=== PATIENT | female | born 1975 | race Hispanic/Latino ===

== ENCOUNTER 2019-10-25 12:40 | Outpatient (CLI) | payer OTHER ==
--- NOTE | 2019-10-25 13:59 | MMO ---
Bilateral MAMMO Bilat Diag [facility]. CLINICAL HISTORY: Patient is 44 years old and is seen for diagnostic exam,palpable abnormality and pain in both breasts. The patient has no family history of breast cancer. The patient has no personal history of cancer. VIEWS: The views performed were: bilateral craniocaudal; bilateral craniocaudal with tomosynthesis; bilateral mediolateral oblique with tomosynthesis; and bilateral mediolateral with tomosynthesis. FILMS COMPARED: The present examination has been compared to prior imaging studies performed at [facility] on 05/08/2014 and 10/25/2019. This study has been interpreted with the assistance of computer-aided detection. MAMMOGRAM FINDINGS: There are scattered fibroglandular densities. There are no suspicious masses, suspicious calcifications, or new areas of architectural distortion. There are no mammographic or sonographic abnormalities in the areasof palpable concern. The patient is referred back to her clinician. Negative imaging findings should not preclude biopsy if clinical findings are suspicious. IMPRESSION: THERE ARE NO MAMMOGRAPHIC OR SONOGRAPHIC ABNORMALITIES IN THE AREASOF PALPABLE CONCERN. THE PATIENT IS REFERRED BACK TO HER CLINICIAN. NEGATIVE IMAGING FINDINGS SHOULD NOT PRECLUDE BIOPSY IF CLINICAL FINDINGS ARE SUSPICIOUS. THE RESULTS OF THIS EXAM WERE SENT TO THE PATIENT. ACR BI-RADS Category 1 - Negative MAMMOGRAPHY NOTE: 1. A negative mammogram report should not delay a biopsy if a dominant of clinically suspicious mass is present. 2. Approximately 10% to 15% of breast cancers are not detected by mammography. 3. Adenosis and dense breasts may obscure an underlying neoplasm. Reported by: BUFFY HICKS MD Electonically Signed: [id number]
--- NOTE | 2019-10-25 14:02 | ULT ---
EXAM: US Breast Limited Rt PROVIDED CLINICAL HISTORY: Right breast palpable abnormality COMPARISON: None FINDINGS: Limited sonographic interrogation of the right breast was performed in the region of palpable concern . There is a 5 mm intramammary lymph node seen in the region of palpable concern. No concerning sonographic findings are evident. IMPRESSION: No concerning sonographic findings are evident in the region of palpable concern. Negative imaging fi ndings should not preclude further evaluation of a clinically suspicious area. The patient is referred back to her clinician. BI-RADS 2 -- benign findings
--- NOTE | 2019-10-25 14:02 | ULT ---
EXAM: US Breast Limited Lt PROVIDED CLINICAL HISTORY: Left breast palpable abnormality COMPARISON: None FINDINGS: Limited sonographic interrogation was performed of the left breast in the region of palpable concern. The sonographic appearance of the breast tissue in this region is normal. IMPRESSION: No sonographic abnormality is evident in the region of clinical concern. Negative imaging findings sh ould not preclude further evaluation of a clinically suspicious finding. Patient is referred back to her clinician.
== END 2019-10-25 12:41 | disposition home or self-care (01) ==
LOC: BICMAMMO 12:40
PROVIDERS: ATTEND Family Medicine
DX: N63.10 Unspecified lump in the right breast, unspecified quadrant (principal); N63.20 Unspecified lump in the left breast, unspecified quadrant; N64.4 Mastodynia
CPT/HCPCS: 77066; G0279

== ENCOUNTER 2019-11-16 06:53 | Observation (INO) | payer SELFPAY ==
[2019-11-16 07:42] LABS: #Eosinphils 0.1 thou/uL (0.0-0.7); #Lymphocytes 2.3 thou/uL (1.20-3.40); #Monocytes 0.4 thou/uL (0.11-0.59); #Neutrophils 3.4 thou/uL (1.40-6.50); %Basophils 0.2 % (0.0-1.0); %Eosinophils 1.3 % (0.0-10.0); %Lymphocytes 36.8 % (21.0-51.0); %Monocytes 6.2 % (0.0-10.0); %Neutrophils 55.5 % (42.0-75.0); Hemoglobin 14.4 g/dL (12.0-16.0); Mean Corpuscular HGB CONC 34.7 g/dL (32.0-36.0); Mean Corpuscular Hemoglobin 30.8 pg (27.0-31.0); Mean Platelet Volume 8.5 fL (7.4-10.4); Platelet Count 216 thou/uL (130-400); RBC Distribution Width 11.3 % (11.5-14.5); Red Blood Cell (RBC) Count 4.67 mill/uL (4.20-5.40); White Blood Cell (WBC) Count 6.2 thou/uL (4.8-10.8)
[2019-11-16 07:47] LABS: BHCG - Serum Negative (NEGATIVE); Pregs Control Background? CLEAR/WHITE (CLR/WHITE); Pregs Control Bar Appear? YES (CONTROL BAR)
--- NOTE | 2019-11-16 07:52 | RAD ---
Chest one view HISTORY: Chest pain. FINDINGS: Cardiac silhouette is magnified by projection. Pulmonary vasculature is unremarkable. Mediastinum is midline. No lobar consolidation or evidence of pneumothorax. athletic monitor leads overlie the chest. IMPRESSION : No abnormalities are demonstrated
[2019-11-16 08:01] LABS: ALT (SGPT) 23 U/L (8-55); AST (SGOT) 13 U/L (5-34); Albumin 3.9 g/dL (3.5-5.0); Alkaline Phosphatase 135 U/L (40-110); Anion Gap 13 mmol/L (10-20); BUN (Urea Nitrogen) 14 mg/dL (7.0-18.7); Bilirubin, Total 0.6 mg/dL (0.2-1.2); Calc. Creatinine Clearance 0 mL/min (70-130); Calcium 8.9 mg/dL (7.8-10.44); Carbon Dioxide 24 mmol/L (22-29); Chloride 102 mmol/L (98-107); Estimated GFR-MDRD Greater than 90; Globulin 2.8 g/dL (2.4-3.5); Glucose 351 mg/dL (70-105); Lipase 10 U/L (8-78); Potassium 3.7 mmol/L (3.5-5.1); Protein, Total 6.7 g/dL (6.0-8.3); Sodium 135 mmol/L (136-145)
[2019-11-16 08:22] LABS: CKMB 0.6 ng/mL (0-6.6)
[2019-11-16] MEDS ORDERED: Nitroglycerin 0.4 MG TAB 1 EACH ONE (09:00)
[2019-11-16] MEDS ORDERED: Ketorolac Tromethamine 30 MG/ML VIAL ONE (09:07)
[2019-11-16 10:52] LABS: Troponin I Less than 0.010 ng/mL (< 0.028)
[2019-11-16] MEDS ORDERED: Nitroglycerin 0.4 MG TAB (25 Tab Bottle) PO PRN (11:34)
[2019-11-16] MEDS ORDERED: Dextrose 5% in Water 1,000 ML IV PRN (11:34)
[2019-11-16] MEDS ORDERED: Dextrose 50% Abboject 50 ML SYRINGE SLOW IVP PRN (11:34)
[2019-11-16] MEDS ORDERED: Insulin Glargine 10 UNITS in Pre-Filled Syringe 1 EACH SC SCH (11:34)
[2019-11-16] MEDS ORDERED: HumaLOG 300 UNITS/3 ML VIAL SC PRN ×2 (11:34)
[2019-11-16] MEDS ORDERED: Mag-Al 1200 mg/1200 mg/30 ML UDCUP PO PRN (11:56)
[2019-11-16] MEDS ORDERED: Pantoprazole 40 MG VIAL IVP SCH (12:00)
[2019-11-16 12:32] VITALS: BMI 48.9
--- NOTE | 2019-11-16 15:49 | NM ---
EXAM: Cardiac SPECT HISTORY: Chest pain PROTOCOL: Stress only, single isotope TYPE OF STRESS: Pharmacologic stress with adenosine was monitored and interpreted by Jb Sage RADIOPHARMACEUTICAL: 32 mCi technetium 99m-sestamibi injected intravenously FINDINGS: Homogeneous tracer distribution is seen in the myocardial segments on the post stress images. Gated SPECT LVEF: 57% Wall motion exam: Normal IMPRESSION: Normal post stress myocardial perfusion scan.
[2019-11-16 15:53] VITALS: BP 150/68; TEMP 98.4
--- NOTE | 2019-11-16 18:03 | HP ---
PRIMARY CARE PHYSICIAN: Mecca Cortez. CHIEF COMPLAINT: Right-sided chest pain, that radiates to the back. HISTORY OF PRESENT ILLNESS: The patient is a pleasant 44-year-old female with past medical history significant for diabetes mellitus type 2 and stomach ulcers. She presents to the ER after right-sided chest pain started last night at about 2330 hours. She was sitting at home watching TV when it started on her right side and radiated to her back. She states that it felt like a shock of pain and she could not move. She was finally able to call out for her and he helped her to bed. She took two 325 mg aspirin which helped a slightly with the pain. Throughout the night, the pain continued. She denies nausea, diaphoresis , dizziness, shortness of breath. She states that the pain is in her upper epigastric area, into to her midsternum and it radiates then to the back. When she arrived to the ER today, they gave her nitroglycerin, which she said helped some also, but caused a headache. They then gave her Toradol, which helped her headache. She still has mild pain to the right side. It is exacerbated with palpation. She does state that movement can make it worse. Denies pleurisy. Of note, the patient also claims that for the past 2 weeks when she has been eating, she is having burning pain in her stomach. She has a history of stomach ulcers that were discovered after doing an EGD a couple of years ago. She says she was supposed to follow up with GI, but did not have insurance or money to do that. She has been off her insulin for a few days and she is waiting on a refill from the pharmacy. Blood sugars today are ranging in the high 300s. Today, in the ER, they completed labs, x-ray, EKG, and administered 30 mg of Toradol and 1 nitroglycerin sublingual 0.4 mg. PAST MEDICAL HISTORY: 1. Diabetes mellitus type 2. 2. Migraines. 3. Stomach ulcers. 4. Endometriosis. PAST SURGICAL HISTORY: 1. Uterine ablation. 2. Uterus removal. 3. Cholecystectomy. 4. Hysterectomy. ALLERGIES: NO KNOWN DRUG ALLERGIES. MEDICATIONS: As reconciled from the ER; 1. Metformin 500 mg two times a day. 2. Levemir 60 units twice a day. 3. Fluoxetine 20 mg once a day. 4. Lisinopril 5 mg once a day. SOCIAL HISTORY: The patient is currently unemployed. She lives at home with her and son. She denies any smoking, alcohol, or drug history. FAMILY HISTORY: Dad in his 60s from heart disease, had history of diabetes and kidney failure also. Mother has hypertension. REVIEW OF SYSTEMS: All other review of systems are negative unless noted in the history of present illness. PHYSICAL EXAMINATION: VITAL SIGNS: Blood pressure 130/67, pulse 76, respiratory rate 19, temperature 98.3 orally, O2 saturation 97% on room air. HEENT: Head; atraumatic, normocephalic. PERRLA. Extraocular muscles intact. NECK: Normal range of motion. Trachea midline. RESPIRATORY: Breath sounds are clear to auscultation bilaterally. No wheezing. No rhonchi. No rales. CARDIOVASCULAR: Regular rate and rhythm. No murmurs. No rubs. No gallops. ABDOMEN: Tender to the epigastric area. No guarding. No masses. EXTREMITIES: No cyanosis. Pedal pulses intact. Right foot with very slight edema to it. NEUROLOGIC: Awake and alert. PSYCH: Normal affect. Normal behavior. LABORATORY STUDIES: EKG showed sinus rhythm, rate of 75. Chest x-ray; pulmonary vasculature is unremarkable. No evidence of pneumothorax, no abnormalities are demonstrated. White blood cell 6.2, hemoglobin 14.4, hematocrit 41.5. Sodium 135, potassium 3.7, BUN 14, creatinine 0.69, GFR greater than 90, glucose 351, alkaline phosphatase 135. Initial troponin 0.060, 2nd less than 0.010. Negative test. IMPRESSION AND PLAN: 1. Chest pain. Plan to do a cardiac stress test this afternoon and to continue to watch the troponins. She will be monitored on telemetry. During this time, as needed nitroglycerin will be available for continued chest pain. 2. Diabetes. Give 1 time dose of Levemir 10 units. The patient says she has not taken her insulin for a couple of days, she is waiting for refill. We will monitor Accu-Cheks a.c. and at bedtime, and cover with sliding scale insulin. 3. Hypertension. Vital signs are stable at this time. Can reconcile home medications and followup or cover with p.r.n. antihypertensives as needed. 4. Anxiety. The patient has increased anxiety about being in the hospital especially with the COVID pandemic. We will continue to monitor her and keep her as comfortable as possible. 5. GI prophylaxis and DVT prophylaxis in place. The patient wishes to be a full code. Her surrogate decision maker, she has asked to have it be her mother, Tatyana Ramos. 6. The patient has been discussed with Dr. Atkins. Job ID: [id number] MTDD
[2019-11-17] MEDS ORDERED: Aspirin 325 mg Enteric Coated Tablet PO SCH (09:00)
--- NOTE | 2019-11-17 11:09 | DIS ---
DATE OF ADMISSION: 11/16/2019 DATE OF DISCHARGE: 11/16/2019 The patient was seen and examined on the day of discharge. Denies any new complaints. Chest discomfort has improved. Vital signs showed temperature of 97.9, pulse of 64, respirations of 18, blood pressure of 137/84, and O2 saturation of 97% on room air. BRIEF HOSPITAL COURSE: The patient is a 44-year-old female with diabetes mellitus type 2 and family history of heart disease, presented to the hospital with chest discomfort. Please refer to the history and physical for further details. The patient was admitted to the hospital with a diagnosis of chest discomfort, rule out MD. Her initial troponin was 0.060 with a normal CK-MB. Repeat troponin 3 hours later was negative. She underwent a Cardiolite stress test, that was negative for reversible ischemia. Ejection fraction was 57% without any wall motion abnormality. Her chest discomfort is reproducible and is probably musculoskeletal. She appears stable for discharge. FINAL DIAGNOSES: 1. Atypical chest discomfort. 2. Family history of heart disease. 3. No reversible ischemia on the stress test. 4. Diabetes mellitus, type 2. 5. Hypertension. 6. Anxiety. 7. Morbid obesity with a BMI of 48.9. 8. Hyponatremia. Job ID: [id number]
== END 2019-11-16 18:15 | disposition home or self-care (01) ==
LOC: ERS 06:53 → EEVIPCON 06:53 → 2NO 11:50
PROVIDERS: ADMIT Internal Medicine; ATTEND Internal Medicine
DX: R07.89 Other chest pain (principal); E11.9 Type 2 diabetes mellitus without complications; I10 Essential (primary) hypertension; F41.9 Anxiety disorder, unspecified; F32.9 Major depressive disorder, single episode, unspecified; E87.1 Hypo-osmolality and hyponatremia; E66.01 Morbid (severe) obesity due to excess calories; Z68.42 Body mass index [BMI] 45.0-49.9, adult; Z82.49 Family history of ischemic heart disease and other diseases of the circulatory system; Z79.4 Long term (current) use of insulin; Z79.899 Other long term (current) drug therapy
CPT/HCPCS: 36415; 36416; 71045; 78452; 80053; 82553; 83690; 84484; 84703; 85025; 93005; 93017; 96374; 96375; A9500; C9113; G0378; J0153; J1885

== ENCOUNTER 2024-02-05 08:04 | Outpatient (CLI) | payer OTHER | END 2024-02-05 08:05 | disposition home or self-care (01) | LOC: ULT 08:04 | PROVIDERS: ATTEND Nurse Practitioner Family | DX: R60.0 Localized edema (principal) ==

== ENCOUNTER 2024-02-10 16:11 | Emergency (ER) | payer SELFPAY ==
[2024-02-10 19:27] LABS: Bacteria/HPF None Seen HPF (None Seen); Bilirubin Negative (Negative); Blood, Urine Negative (Negative); CAUTI Indications for Culture Dysuria,urgency,freq; Clarity Clear (Clear); Glucose, Urine (Dipstick) >=1000 mg/dL (Negative); Ketone, Urine Negative (Negative); Leukocyte Negative Leu/uL (Negative); Nitrite Negative (Negative); Protein, Urine (Dipstick) Negative (Neg-Trace); RBC/HPF 0-3 HPF (0-3); Specific Gravity, Urine 1.025 (1.002-1.036); Squamous Epithelial 0-3 HPF (0-3); WBC/HPF 0-3 HPF (0-3); pH, Urine 6.5 (5.0-9.0)
[2024-02-10 19:29] LABS: Urine Culture Reflex No No
[2024-02-10 20:29] LABS: #Basophils 0.03 10x3/uL (0.0-0.2); %Basophils 0.4 % (0.0-1.0); %Lymphocytes 26.5 % (21.0-51.0); %Monocytes 6.2 % (0.0-10.0); %Neutrophils 64.5 % (42.0-75.0); Hematocrit 39.4 % (36.0-47.0); Hemoglobin 13.5 g/dL (12.0-16.0); Mean Corpuscular HGB CONC 34.3 g/dL (32.0-36.0); Mean Corpuscular Hemoglobin 30.3 pg (27.0-31.0); Mean Corpuscular Volume 88.3 fL (78.0-98.0); Mean Platelet Volume 11.1 fL (7.4-10.4); Platelet Count 215 10x3/uL (130-400); RBC Distribution Width 12.6 % (11.5-14.5); Red Blood Cell (RBC) Count 4.46 mill/uL (4.20-5.40)
[2024-02-10] MEDS ORDERED: Ondansetron ODT 4 MG TAB ONE (20:39)
[2024-02-10 20:50] LABS: ALT (SGPT) 22 U/L (8-55); AST (SGOT) 15 U/L (5-34); Albumin 3.5 g/dL (3.5-5.0); Alkaline Phosphatase 129 U/L (40-110); Anion Gap 11 mmol/L (10-20); BUN (Urea Nitrogen) 17 mg/dL (7.0-18.7); Bilirubin, Total 0.4 mg/dL (0.2-1.2); Calc. Creatinine Clearance 0 mL/min (70-130); Carbon Dioxide 24 mmol/L (22-29); Chloride 106 mmol/L (98-107); Estimated GFR 108; Globulin 3.8 g/dL (2.4-3.5); Glucose 212 mg/dL (70-105); Lipase 16 U/L (8-78); Potassium 3.5 mmol/L (3.5-5.1); Protein, Total 7.3 g/dL (6.0-8.3); Sodium 137 mmol/L (136-145)
[2024-02-10 20:51] LABS: BHCG - Serum Negative (NEGATIVE); Pregs Control Background? CLEAR/WHITE (CLR/WHITE); Pregs Control Bar Appear? YES (CONTROL BAR)
== END 2024-02-10 21:15 | disposition home or self-care (01) ==
LOC: ERS 16:11
DX: E11.9 Type 2 diabetes mellitus without complications (principal); R60.0 Localized edema
CPT/HCPCS: 36415; 36416; 80053; 81001; 83690; 83880; 84703; 85025; 93005; Q0162

== ENCOUNTER 2024-02-19 16:19 | Outpatient (CLI) | payer OTHER | END 2024-02-19 16:20 | disposition home or self-care (01) | LOC: ULT 16:19 | PROVIDERS: ATTEND Nurse Practitioner Family | DX: R60.0 Localized edema (principal) | CPT/HCPCS: 93923 ==